=== PATIENT | female | born 1960 | race Caucasian/White ===

== ENCOUNTER → 2023-06-24 13:55 | Outpatient (REF) | payer OTHER, SELFPAY | LOC: RAD 13:55 | PROVIDERS: ATTENDING PHYSICIAN Family Medicine | DX: I82.401 Acute embolism and thrombosis of unspecified deep veins of right lower extremity (principal) | CPT/HCPCS: 93971 ==

== ENCOUNTER → 2023-06-28 09:43 | Outpatient (REF) | payer OTHER, SELFPAY | LOC: WOUND 09:43 | PROVIDERS: ATTENDING PHYSICIAN Surgery; REFERRING PHYSICIAN Family Medicine | DX: I87.311 Chronic venous hypertension (idiopathic) with ulcer of right lower extremity (principal); L97.812 Non-pressure chronic ulcer of other part of right lower leg with fat layer exposed; I89.0 Lymphedema, not elsewhere classified; I73.9 Peripheral vascular disease, unspecified; I87.2 Venous insufficiency (chronic) (peripheral); E66.01 Morbid (severe) obesity due to excess calories | CPT/HCPCS: 11042; 99203 ==

== ENCOUNTER → 2023-07-09 14:55 | Outpatient (REF) | payer OTHER, SELFPAY | LOC: WOUND 14:55 | PROVIDERS: ATTENDING PHYSICIAN Surgery; FAMILY PHYSICIAN Family Medicine | DX: I87.311 Chronic venous hypertension (idiopathic) with ulcer of right lower extremity (principal); L97.812 Non-pressure chronic ulcer of other part of right lower leg with fat layer exposed; I89.0 Lymphedema, not elsewhere classified; I73.9 Peripheral vascular disease, unspecified; I87.2 Venous insufficiency (chronic) (peripheral); E66.01 Morbid (severe) obesity due to excess calories | CPT/HCPCS: 11042 ==

== ENCOUNTER → 2023-07-19 14:56 | Outpatient (REF) | payer OTHER, SELFPAY | LOC: WOUND 14:56 | PROVIDERS: ATTENDING PHYSICIAN Surgery; FAMILY PHYSICIAN Family Medicine | DX: I87.311 Chronic venous hypertension (idiopathic) with ulcer of right lower extremity (principal); L97.812 Non-pressure chronic ulcer of other part of right lower leg with fat layer exposed; I89.0 Lymphedema, not elsewhere classified; I73.9 Peripheral vascular disease, unspecified; I87.2 Venous insufficiency (chronic) (peripheral); E66.01 Morbid (severe) obesity due to excess calories | CPT/HCPCS: 99213 ==

== ENCOUNTER → 2023-08-09 14:48 | Outpatient (REF) | payer OTHER, SELFPAY | LOC: WOUND 14:48 | PROVIDERS: ATTENDING PHYSICIAN Surgery; FAMILY PHYSICIAN Family Medicine | DX: I87.311 Chronic venous hypertension (idiopathic) with ulcer of right lower extremity (principal); L97.812 Non-pressure chronic ulcer of other part of right lower leg with fat layer exposed; I89.0 Lymphedema, not elsewhere classified; I73.9 Peripheral vascular disease, unspecified; I87.2 Venous insufficiency (chronic) (peripheral); E66.01 Morbid (severe) obesity due to excess calories | CPT/HCPCS: 11042 ==

== ENCOUNTER → 2023-08-26 14:35 | Outpatient (REF) | payer OTHER, SELFPAY | LOC: WOUND 14:35 | PROVIDERS: ATTENDING PHYSICIAN Surgery; FAMILY PHYSICIAN Family Medicine | DX: I87.311 Chronic venous hypertension (idiopathic) with ulcer of right lower extremity (principal); L97.812 Non-pressure chronic ulcer of other part of right lower leg with fat layer exposed; I89.0 Lymphedema, not elsewhere classified; I73.9 Peripheral vascular disease, unspecified; I87.2 Venous insufficiency (chronic) (peripheral); E66.01 Morbid (severe) obesity due to excess calories | CPT/HCPCS: 99212 ==

== ENCOUNTER → 2023-09-22 15:57 | Outpatient (REF) | payer OTHER, SELFPAY | LOC: HWWDC 15:57 | PROVIDERS: ATTENDING PHYSICIAN Family Medicine | DX: Z12.31 Encounter for screening mammogram for malignant neoplasm of breast (principal) | CPT/HCPCS: 77063; 77067 ==

== ENCOUNTER → 2023-10-14 08:16 | Outpatient (REF) | payer OTHER, SELFPAY | LOC: RCS 08:16 | PROVIDERS: ATTENDING PHYSICIAN Internal Medicine Cardiovascular Disease; FAMILY PHYSICIAN Family Medicine | DX: R60.9 Edema, unspecified (principal) | CPT/HCPCS: 93306 ==

== ENCOUNTER → 2023-12-20 09:42 | Outpatient (REF) | payer OTHER, SELFPAY | LOC: RAD 09:42 | PROVIDERS: ATTENDING PHYSICIAN Registered Nurse; FAMILY PHYSICIAN Family Medicine | DX: R22.43 Localized swelling, mass and lump, lower limb, bilateral (principal); I83.012 Varicose veins of right lower extremity with ulcer of calf; L97.219 Non-pressure chronic ulcer of right calf with unspecified severity | CPT/HCPCS: 93922; 93970 ==

== ENCOUNTER 2024-05-02 16:16 | Inpatient (IN) | payer OTHER, SELFPAY ==
[2024-04-30 16:08] VITALS: BP 147/79
[2024-04-30 16:47] LABS: % Basophils 0.3 % (0-2); % Immature Granulocytes 1.1 % (0-0.5); % Monocytes 5.9 % (1.7-9.3); % Neutrophils 76.7 % (42.2-75.2); Absolute Eosinophils 0.3 10^3/uL (0-0.7); Absolute Immature Granulocytes 0.1 10^3/uL (0-0.05); Absolute Lymphocytes 1.9 10^3/uL (1.2-3.4); Absolute Monocytes 0.8 10^3/uL (0.1-0.6); Absolute Neutrophils 10.1 10^3/uL (1.4-6.5); Hematocrit 35.6 % (37.0-47.0); Hemoglobin 11.1 g/dL (12.0-16.0); Mean Corp Hgb Conc. 31.2 g/dL (33.0-37.0); Mean Corpuscular Volume 86.6 fL (81.0-99.0); Mean Platelet Volume 8.7 fL (7.4-10.4); Nucleated Red Blood Cells % 0 %; Platelet Count 380 10^3/uL (130-400); Red Blood Cell Count 4.11 10^6/uL (4.20-5.40); Red Cell Dist. Width 14.3 % (11.5-14.5); White Blood Cell Count 13.2 10^3/uL (4.8-10.8)
[2024-04-30 17:02] LABS: ALT (SGPT) 40 U/L (0-35); AST (SGOT) 46 U/L (14-36); Albumin 3.6 g/dl (3.5-5.0); Alkaline Phosphatase 109 U/L (38-126); Blood Urea Nitrogen 37 mg/dl (7-17); Calcium 9.2 mg/dl (8.4-10.2); Carbon Dioxide 30 mmol/L (22-30); Chloride 97 mmol/L (98-107); Glucose 129 mg/dl (70-99); Potassium 3.5 mmol/L (3.5-5.1); Sodium 138 mmol/L (135-145); Total Bilirubin 0.5 mg/dl (0.2-1.3); Total Protein 6.9 g/dl (6.3-8.2)
[2024-04-30] MEDS: ZOSYN 50 IV (19:16)
[2024-04-30] MEDS: NSS 1000 IV (19:17)
[2024-04-30 19:34] VITALS: BP 143/65
--- NOTE | 2024-04-30 20:15 | EDRN ---
Report received, patient to go to ultrasound
--- NOTE | 2024-04-30 21:01 | HPS.HSE ---
Family Physician
-
Family Physician: Constantine Ramirez
Chief Complaint
-
Left lower extremity redness and swelling
History of Present Illness
This is a 63-year-old female with a past medical history significant for chronic bilateral lymphedema and a chronic wound in the right lower extremity who presents to the emergency department for worsening redness and swelling in the left lower
extremity.
Patient reported that she gets blisters in the legs. Recently she had a wound opened up in the left lower extremity and she was treated with Keflex. She finished Keflex on Wednesday. Even while she was on Keflex she reported that she had had
increasing redness and swelling in the left lower extremity. She reports that she has chronic redness in the right lower extremity. She has a chronic wound in the posterior section of this leg for over a year. She has been seeing wound clinic and
has been having debridement with increasing size of the ulcer. Suspect venous stasis ulcer. However on review the wound has been evaluated and is thought to be likely pyoderma gangrenosum. Patient is pending outpatient dermatology for further
evaluation. She has been placed on prednisone 20 mg by her specialist. She has chronic bilateral knee osteoarthritis for which she gets regular injections and last injection was several weeks ago. Patient denies any fevers or chills.
In the ED she was afebrile, hemodynamically stable to blood pressure of 140/65. White count was 13,000. Hemoglobin was 11.1. Electrolytes BUN/creatinine were within normal limits.
Bilateral lower extremity ultrasound was negative for DVT.
Medical History
Past Medical History
Past Medical History: Reports Other
Additional Past Medical History:
Lymphedema
Chronic RLE wound
Past Surgical History: Reports Tonsilectomy
Social History
Tobacco: Non-smoker
Alcohol: Occasional
Drug: None
Personal:
Living: With Family
Employment: Retired
Family History
Family History: Not pertinent
Allergies / Home Medications
Allergies reflects when Allergies were last updated in [facility].
Home Medications with original date entered in [facility]
Allergy/Medication List:
Allergies
Allergy/AdvReac Type Severity Reaction Status Date / Time
latex Allergy Swelling Verified 04/30/24 16:07
Home Medications
Lactobac no.2-Bifidobac no.1-S. thermo 112.5 billion cell capsule (Visbiome) 1 cap PO DAILY 04/30/24
ascorbic acid (vitamin C) 500 mg tablet (Vitamin C) 500 mg PO DAILY 04/30/24
bismuth subsalicylate 262 mg/15 mL oral suspension (Pepto-Bismol) 262 mg PO DAILYPRN PRN diarrhea 04/30/24
furosemide 40 mg tablet (Lasix) 40 mg PO DAILY 04/30/24
gabapentin 300 mg capsule 300 mg PO BID 04/30/24
ibuprofen 200 mg tablet (Advil) 400 mg PO Q8HPRN PRN mild pain 04/30/24
metronidazole 1 % topical gel 1 applic topical DAILY right lower leg 04/30/24
nystatin 100,000 unit/gram topical powder (Klayesta) 1 applic topical DAILY right lower leg 04/30/24
prednisone 20 mg tablet 20 mg PO DAILY 04/30/24
therapeutic multivitamin 1 tab PO DAILY 04/30/24
tramadol 100 mg tablet 100 mg PO TIDPRN PRN moderate pains 04/30/24
vitamin E 268 mg (400 unit) capsule 268 mg PO DAILY 04/30/24
zinc sulfate 50 mg zinc (220 mg) tablet 50 mg PO DAILY 04/30/24
Review of Systems
-
History Source: Patient
Constitutional: Reports No Symptoms
EENT: Reports No Symptoms
Respiratory: Reports No Symptoms
Cardiac: Reports No Symptoms
Abdomen/GI: Reports No Symptoms
: Reports No Symptoms
Musculoskeletal: Reports No Symptoms
Skin: Reports Rash
Endocrine: Reports No Symptoms
Hematologic/Lymphatic: Reports No Symptoms
Psych: Reports No Symptoms
Physical Exam
Vital Signs
Vital Signs
Temp Pulse Resp BP Pulse Ox
98.0 F 82 20 143/65 92
04/30/24 16:08 04/30/24 19:34 04/30/24 19:34 04/30/24 19:34 04/30/24 19:34
Physical Exam
General: Well Developed and Well Nourished
HEENT: NormoCephalic, Anicteric, Moist mucous membranes and Atraumatic
Respiratory: Clear
Cardiac: S1/S2 and Regular Rhythm
GI: Soft, Non Tender, Non Distended and Normal Bowel Sounds
Genito-urinary: Deferred by me
Musculoskeletal: No Cyanosis, Edema, Left Lower Extremity and Edema, Right Lower Extremity
Skin: Warm, Rash and Lesions (5 cm round lesion with granulation tissue in the posterior RLE. Multiple small ulcerations in the Left LE. LE erythema, induration and warmth. No obvious abscess.)
Neuro: AO x 3 and Nonfocal/grossly intact
Hematologic/Lymphatic: No Lymphadenopathy
Psych: Calm
Laboratory Results
-
04/30/24 16:38
04/30/24 16:38
Laboratory Results
Total Bilirubin 0.5 mg/dl (0.2-1.3) 04/30/24 16:38
AST 46 U/L (14-36) H 04/30/24 16:38
ALT 40 U/L (0-35) H 04/30/24 16:38
Alkaline Phosphatase 109 U/L (38-126) 04/30/24 16:38
Data Reviewed
-
Ultrasound: Report Reviewed by me
Lab Data: Labs Reviewed by me
Old Records: Reviewed
Impression/Plan
-
IMPRESSION:
Patient with lymphedema and chronic LE swelling presenting with rapidly developed eythema in the LLE after completing keflex for a LLE wound 2 days ago. Leukocytosis. Afebrile. No DVT. C/W cellulitis.
PLAN:
1. Cellulitis - Mostly LLE, possibly also on the right. Recent abx use (keflex). Has been treated with levaquin in the past and most recent treatment with levaquin was ineffective. She is told she likely has pyoderma gangrenosum on the RLE.
- admit to med/surg obs
- Vancomycin IV for now
- ID consultation
- elevate leg, pain control
- continue lasix 40 daily
- does not want wound care here at
- has outpatient wound care and dermatology referral for pyoderma
DVT PPX - lovenox sq
Code status - Full Code
--- NOTE | 2024-04-30 21:15 | EDRN ---
Patient back from ultrasound and in the restroom dressing her wounds and putting pajamas on, once back in bed will get a weight on patient for antibiotics
[2024-04-30 21:48] VITALS: BMI 43.9
--- NOTE | 2024-04-30 21:56 | EDRN ---
Report received, patient to go to ultrasound
[2024-04-30] MEDS: VANCOCIN 540 MG IV (22:07)
[2024-04-30 22:20] VITALS: BP 154/74
--- NOTE | 2024-04-30 22:20 | EDRN ---
Patient informed me that she had taken her own Tramadol 100mg around 2100, states the provider told her she could, told her the rest of her meds we would provide her.
--- NOTE | 2024-04-30 23:19 | ED.SKININJ ---
HPI-Injury
General
Chief Complaint: Skin Problem
Source: patient
Exam Limitations: none
Time Seen by Provider: 04/30/24 17:56
Nursing documentation reviewed up to this point in time: agreed with
History of Present Illness-Injury
Initial Injury comments:
63 yo female w h/o pyoderma gangrenosum bilateral LE neuropathy presents for increased redness, swelling, oozing blisters, pain both lower legs,
Finished regimen of Keflex 2 days ago for sore on RLE. Started on Gabapentin 2-3 weeks ago for leg pain
Developed bullous blisters on both LEs 2-3 weeks ago
Denies f/c/d/c. Denies n/v.
Past History
Past History
ED Past Medical History: Other (Bilateral lower extremity lymphedema) and Other (Pyoderma gangrenosum)
ED Past Surgical History: Tonsilectomy
Social History
Tobacco: Non-smoker
Alcohol: None
Personal:
Living: with family
Review of Systems
Review of Systems
Allergies reviewed?: Yes
All Other Systems: ROS reviewed and negative except as documented in HPI and ROS
Constitutional: Denies fever or fatigue
Respiratory: Denies trouble breathing
Cardiac: Denies chest pain
ABD/GI: Denies abdominal pain or nausea
: Denies dysuria or difficulty voiding
Musculoskeletal: Reports edema (Bilateral lower extremity lymphedema)
Skin: Reports other (Bilateral lower extremities with erythema, oozing fluid, ulcerations)
Neurological: Reports no symptoms
Phy Exam
Physical Exam
Physical Exam:
GENERAL: No acute distress. A&Ox3.
CONSTITUTIONAL: Afebrile.
EYES: clear, conjunctivae normal
ENMT: moist mucus membranes, Pharynx nl
RESPIRATORY: Regular respirations, nonlabored, lungs clear.
CARDIOVASCULAR: Regular rate and rhythm, no murmurs, no rubs.
GI: Soft, nontender, normal BS
MUSCULOSKELETAL: Both lower extremities are erythematous, edematous, oozing clear to yellowish fluid. Moves with ease. Well perfused.
SKIN: Warm, dry, pink. Tender lesion posterior aspect of RLE. Several small ulcerations LLE
PSYCH: Normal mood and affect. Well kept, interactive and appropriate
NEUROLOGIC: Awake, alert and oriented. No focal neurological deficits
Course
Orders/Labs/Results
Orders:
Orders
04/30/24 Dinner
Regular
04/30/24 16:38
Complete Blood Count/With Diff Urgent
Comprehensive Metabolic Panel Urgent
04/30/24 18:44
US Periph Venous LOWER Ext Rashard Urgent
Comment:
Reason For Exam: swelling, redness, pain, wounds
04/30/24 18:54
Piperacillin/Tazo 3.375 Gram [Zosyn] 3.375 gram in 50 ml IV NOW
04/30/24 18:57
0.9% Sodium Chloride 1000 ml [Nss] 1,000 ml IV BOLUS
04/30/24 20:43
Admit/Transfer Patient As Directed
Co-Sign Provider:
Level of Care: Observation services
Assign to:: Medical/Surgical
Physician / Group: hospitalist
Diagnosis: cellulitis
PRN Pain Medication Management As Directed
May give lesser potent ordered pain med per pt: Yes
preference::
Protocol:: Medication orders for pain may be administered in a
manner that supports deferring to patient preference
when the pt is:
- Requesting an ordered lesser potent pain medication.
Least to most potent pain medications are defined
as: acetaminophen < NSAID < tramadol < opioids
(morphine, oxycodone, hydromorphone).
- Requesting a lesser dose of the same medication IF
ORDERED.
- Requesting a less intrusive route of administration
if both routes are prescribed by the provider (PO <
IV).
04/30/24 20:44
Code Status As Directed
Resuscitation Status: Full Code
04/30/24 20:59
Vancomycin [Vancocin] 2,000 mg 0.9% Sodium Chloride 500 ml [Nss] 500 ml IV NOW
04/30/24 22:00
Flush (0.9% Sodium Chloride) [Flush (Nss)] See Dose Instructions IV PER PROTOCOL
04/30/24 22:50
Acetaminophen [Tylenol] 650 mg PO Q4HPRN PRN
Bisacodyl [Dulcolax] 10 mg RECTAL [id number] PRN
Docusate W/Senna [Senokot-S] 1 tablet PO BIDPRN PRN
Polyethylene Glycol Powder [Miralax] 17 grams PO DAILYPRN PRN
VANCOMYCIN Pharmacy to Dose [VANCOCIN Pharmacy to Dose] 1 each Pharmacy To Prepare [Call Pharmacy To Prepare] 0 ml IV PER PROTOCOL
04/30/24 22:50
Activity As Directed
Activity Level: With Assistance
Vital Signs As Directed
Frequency: Per unit guidelines
DX Deep Vein Thrombosis Video Routine
04/30/24 22:58
Tramadol HCl [Ultram] 100 mg PO TIDPRN PRN
05/01/24 06:00
Basic Metabolic Panel IN AM
Complete Blood Count/No Diff IN AM
05/01/24 08:00
Furosemide [Lasix] 40 mg PO DAILY
Gabapentin [Neurontin] 300 mg PO BID
Prednisone [Deltasone] 20 mg PO DAILY
05/01/24 18:00
Enoxaparin Sodium [Lovenox] 40 mg SC QPM
Abnormal Lab Results
04/30/24
16:38
WBC 13.2 H 10^3/uL
(4.8-10.8)
RBC 4.11 L 10^6/uL
(4.20-5.40)
Hgb 11.1 L g/dL
(12.0-16.0)
Hct 35.6 L %
(37.0-47.0)
MCHC 31.2 L g/dL
(33.0-37.0)
Abs Immat Gran (auto) 0.1 H 10^3/uL
(0-0.05)
Absolute Neuts (auto) 10.1 H 10^3/uL
(1.4-6.5)
Absolute Monos (auto) 0.8 H 10^3/uL
(0.1-0.6)
Immature Gran % 1.1 H %
(0-0.5)
Neutrophils % 76.7 H %
(42.2-75.2)
Lymphocytes % 14.0 L %
(20.5-51.1)
Chloride 97 L mmol/L
(98-107)
BUN 37 H mg/dl
(7-17)
Creatinine 1.2 H mg/dL
(0.6-1.0)
Glucose 129 H mg/dl
(70-99)
AST 46 H U/L
(14-36)
ALT 40 H U/L
(0-35)
04/30/24 16:38
04/30/24 16:38
Vital Signs
Initial and Last Documented VS:
Initial Vital Signs
Temp Pulse Resp BP Pulse Ox
98.0 F 99 20 147/79 99
04/30/24 16:08 04/30/24 16:08 04/30/24 16:08 04/30/24 16:08 04/30/24 16:08
Last Documented Vital Signs
Temp Pulse Resp BP Pulse Ox
98.0 F 62 18 154/74 97
04/30/24 16:08 04/30/24 22:20 04/30/24 22:20 04/30/24 22:20 04/30/24 22:20
MDM/Problems Addressed
Differential Diagnosis Includes:
Cellulitis
MDM/Problems Addressed:
63 yo female w h/o pyoderma gangrenosum bilateral LE neuropathy, chronic bilateral lymphedema, chronic wound right lower extremity, presents for increased redness, swelling, oozing blisters, pain both lower legs.
Finished regimen of Keflex 2 days ago for sore on RLE. Started on Gabapentin 2-3 weeks ago for leg pain
Developed bullous blisters on both LEs 2-3 weeks ago
Denies f/c/d/c. Denies n/v.
Afebrile, NAD
CBC: WBC 13.0
CMP: BUN/creat 37/1.2 otherwise no clinically significant abnormality
Bilateral lower extremity ultrasound negative for DVT
Plan: Admit, cellulitis LEs, failed out pt therapy. Hospitalist notified of admission
*Critical Care Note
Total Time (30-74mins, 75-104mins- exclusive of procedures): Not Applicable
ED Attending Note
-
Portions of this chart may have been created with voice recognition software.� Occasional wrong word or��sound alike� substitutions may have occurred due to the inherent limitations of voice recognition software.
Discharge Plan
Departure
Patient Disposition: Admit
Date of Disposition: 04/30/24
Time of Disposition: 20:08
Admit to: Med/Surg
Presentation/result/management discussed w/ accepting MD/DO: Hospitalist
Condition: Fair
Discharge Problem:
Cellulitis of both lower extremities
Interventions
Interventions:
*Risk Screen - Suicide Last Done: 04/30/24 16:08
*General Assessment Last Done: 04/30/24 19:05
*Neglect/Abuse Screening Last Done: 04/30/24 16:08
ED- Fall Risk Assessment Last Done: 04/30/24 19:25
*ED COVID-19 Vaccine History Last Done: 04/30/24 19:25
ED-Skin Assessment Last Done: 04/30/24 19:25
[2024-05-01] VITALS: BP 139/63
[2024-05-01] MEDS: ULTRAM 100 MG PO ×3 (05:50→21:08)
[2024-05-01 06:27] LABS: Hematocrit 34.2 % (37.0-47.0); Hemoglobin 10.8 g/dL (12.0-16.0); Mean Corp Hgb Conc. 31.6 g/dL (33.0-37.0); Mean Corpuscular Hgb 27.6 pg (27.0-31.0); Mean Corpuscular Volume 87.5 fL (81.0-99.0); Mean Platelet Volume 9.1 fL (7.4-10.4); Platelet Count 420 10^3/uL (130-400); Red Blood Cell Count 3.91 10^6/uL (4.20-5.40); Red Cell Dist. Width 14.6 % (11.5-14.5); White Blood Cell Count 11.7 10^3/uL (4.8-10.8)
[2024-05-01 06:52] LABS: Blood Urea Nitrogen 24 mg/dl (7-17); Calcium 8.7 mg/dl (8.4-10.2); Carbon Dioxide 28 mmol/L (22-30); Chloride 103 mmol/L (98-107); Estimated Creatinine Clearance 98 ml/min; Glucose 103 mg/dl (70-99); Potassium 4.2 mmol/L (3.5-5.1); Sodium 139 mmol/L (135-145); eGFR > 60.00
[2024-05-01 08:28] VITALS: BP 180/93
[2024-05-01] MEDS: NEURONTIN 300 MG PO ×2 (08:29→20:17)
[2024-05-01] MEDS: LASIX 40 MG PO (08:29)
[2024-05-01] MEDS: DELTASONE 20 MG PO (08:29)
--- NOTE | 2024-05-01 09:45 | W.PN.HOSP.TC ---
Today's Communication/Plan
-
IV Lasix now
recheck labs in AM
potential dc tomorrow
Assessment / Plan
Assessment / Plan
Cellulitis on LLE
ID consult
empiric abx
Dr Nogueira does not believe this is cellulitis, believes lymphedema and stopped abx
she recommends increase Lasix, follow with derm
Prior dx of Pyoderma Gangrenosum
pt had appt to see Dermatology at [facility] 05/02 for definitive dx/Bx. She cancelled appt, but was told they will get her in soon. On 2nd visit reviewed with pt and , requested set up appt with derm JERONIMO
chronic edema
P:ID consult
will consult wound care. Pt has seen outpt Wound Care at and does not want them to be involved in her care
continue Vanco for now
Full Code
Anticipated Discharge: 24 - 48 hours
Subjective/Interval History
-
Date of Service: May 01, 2024
Awake, alert
Objective Data
-
Labs:
Laboratory Results
05/01/24
05:29
WBC 11.7 H
Hgb 10.8 L
Hct 34.2 L
Plt Count 420 H
Sodium 139
Potassium 4.2
Chloride 103
Carbon Dioxide 28
BUN 24 H
Creatinine 0.7
Glucose 103 H
Calcium 8.7
Vital Signs:
Vital Signs
Temp Pulse Resp BP Pulse Ox
97.8 F 94 18 180/93 98
05/01/24 08:28 05/01/24 08:28 05/01/24 08:28 05/01/24 08:28 05/01/24 08:28
I&O
04/30/24 05/01/24 05/02/24
06:59 06:59 06:59
Intake Total 1020 / 1020
Balance 1020 / 1020
Review of Systems
-
History Source: Patient
Constitutional: Denies Fever
EENT: Reports No Symptoms Reported
Respiratory: Reports No Symptoms
Cardiac: Reports No Symptoms
Abdomen/GI: Reports No Symptoms
Musculoskeletal: Reports Joint Pain (bilateral knee pain)
Physical Exam
-
General: Well Developed, Well Nourished and No Apparent Distress
HEENT: Normocephalic, Atraumatic and Moist Mucous Membranes
Respiratory: Clear to Auscultation; Negative Wheezes, Rales or Rhonchi
Cardiac: Regular Rhythm and S1/S2
GI: Soft, Nontender and Nondistended
Musculoskeletal: Edema, Right Lower Extrem, Edema, Left Lower Extrem and Other (bilateral knee arthritic changes)
Skin: Warm and Rash (leftlower extremity with cellulitic changes, Rt leg with hx of pyoderma and chronic changes)
Neuro: Awake and Alert
--- NOTE | 2024-05-01 09:47 | PHA.VAN.IN ---
Assessment
- Assessment
Renal Function: Unknown baseline
Maximum Temperature: 98.2
Minimum Temperature: 97.8
Concomitant Antimicrobials: one dose of piperacillin-tazobactam in ED
AUC Dosing Plan
- Dosing Variables
Dosing Weight (kg): 108.8 kg
Dosing CrCl (ml/min): 64
Vd coefficient (L/kg): 0.5
- Empiric Dosing
Initial / Loading Dose: 2000 mg (18.5 mg/kg) 04/30 at 22:07
Maintenance Regimen: vanc 1250mg iv q 12 h
Estimated AUC (mcg*h/mL): 569
Estimated Peak (mcg*h/mL): 35.7
Estimated Trough (mcg/ml): 14.5
Estimated Half Life (H): 8 h
- Monitoring
No levels ordered at this time: consider in the upcoming days
MRSA Screen: Ordered per protocol
Pharmacokinetics Vancomycin I
- -
Patient Age: 63
Patient Sex: Female
Vancomycin Day #: 1
Indication: Skin And Soft Tissue
Requesting Provider: Dr Velasquez
Pertinent Antimicrobial Allergies:
no pertinent antibiotic allergies
Height / Weight:
Height 5 ft 2 in
Actual Weight 108.8 kg
Adjusted BW in k.6
Pertinent Past Medical History: pyoderma gangrenosum on outpt wound care and prednisone;BMI ~44
- Vital Signs / Lab Results
Temp Pulse Resp BP Pulse Ox
97.8 F 94 18 180/93 98
05/01/24 08:28 05/01/24 08:28 05/01/24 08:28 05/01/24 08:28 05/01/24 08:28
Lab Results - Hematology
04/30/24 05/01/24
16:38 05:29
WBC 13.2 H 11.7 H
Lab Results - Chemistry
04/30/24 05/01/24
16:38 05:29
BUN 37 H 24 H
Creatinine 1.2 H 0.7
Estimated Creat Clear 98
Albumin 3.6
--- NOTE | 2024-05-01 09:57 | CM ---
CM reviewed medical records. CM met with patient in room. Patient confirmed demographics. Patient lives independently with . Patient denies history of SNF. Patient is known to [facility] and also [facility] (Home Wound LAB SPECIALIST).
Patient's wound LAB SPECIALIST is Consuelo Daniel [phone]. Patient uses a wheelchair at times when she is out with family. Patient uses a cane and walker to negotiate stairs. She stated that she mostly stays on the first floor. Patient is active with
her PCP. Patient uses [facility] pharmacy.
OBS letter given.
PLAN: return home with [facility] and wound LAB SPECIALIST.
[2024-05-01 12:45] VITALS: BP 150/77
--- NOTE | 2024-05-01 13:14 | CON.ID ---
Consultation
-
Date/Time Consultation Requested: 05/01/24 10:09
Date/Time Consultation Performed: 05/01/24 13:14
Requesting Provider: Dr Berkowitz
Performing Provider: Dr Nogueira
Reason for Consultation: Left lower extremity redness and swelling
Chief Complaint / Past History
Chief Complaint
increasing redness and swelling of the LLE
History of Present Illness
Ms Ospina is a 63 year old female with history of class III obesity, uncontrolled lymphedema who presented here yesterday 04/30 for a recent blister on the left lower extremity, a chronic wound and progressive erythema and swelling. She has
previously been diagnosed with pyoderma gangrenosum at a wound care center now on prednisone 20 mg PO day, a biopsy was done outpatient with dermatology and reportedly is still pending. Also of note with recenter steroid injections into the knees.
Since arrival here she has been afebrile, bp stable to hypertensive, wbc initially 13 now11.7, hgb 10.8, plt 420, L shift was noted, cr initially 1.2 today 0.7, 04/30 venous us: no dvt bilaterally, a mrsa screen of the nose has been done and is
pending, she has received doses of vancomycin and zosyn and is currently on vancomycin only, she is alos on furosemide 40 mg po qday (her home dose), and prednisone 20 mg po qday, ID is consulted for assistance with management.
Past History
Additional Past Medical History:
Lymphedema
Chronic RLE wound
Additional Past Surgical History:
tonsillectomy
Allergy History:
latex Allergy (Verified 04/30/24 16:07)
Swelling
Medications Reviewed: Yes
Social History
Tobacco: Non-Smoker
Alcohol: Occasional
Drug: None
Family History
Family History: Not Pertinent
Review of Systems
Review of Systems
General: Negative Fever or Chills
All systems: All other systems were reviewed and were negative
Vital Signs
Temp Pulse Resp BP Pulse Ox
98.0 F 88 18 150/77 96
05/01/24 12:45 05/01/24 12:45 05/01/24 08:28 05/01/24 12:45 05/01/24 12:45
Physical Exam
Physical Exam
Constitutional: No Acute Distress
Cardiovascular: Regular Rate and S1/S2; Negative Murmur or Rub
Pulmonary: Clear and Symmetric; Negative Wheezes, Rales or Rhonchi
Gastrointestinal: Soft, Non Tender, Non Distended and Normal Bowel Sounds
Skin: Warm and Dry; Negative Rash or Jaundice
Wound: Other (extensive bilateral pitting edema with chronic lichenification, wound on the posterior R calf with some eschar, slough and draining serous fluid; erythema of the bilateral feet but not legs; feet in dependent position )
Lab / Diagnostic Study Results
05/01/24 05:29
05/01/24 05:29
Abs Immat Gran (auto) 0.1 10^3/uL (0-0.05) H 04/30/24 16:38
Absolute Neuts (auto) 10.1 10^3/uL (1.4-6.5) H 04/30/24 16:38
Absolute Lymphs (auto) 1.9 10^3/uL (1.2-3.4) 04/30/24 16:38
Absolute Monos (auto) 0.8 10^3/uL (0.1-0.6) H 04/30/24 16:38
Absolute Basos (auto) 0.0 10^3/uL (0-0.2) 04/30/24 16:38
Immature Gran % 1.1 % (0-0.5) H 04/30/24 16:38
Neutrophils % 76.7 % (42.2-75.2) H 04/30/24 16:38
Lymphocytes % 14.0 % (20.5-51.1) L 04/30/24 16:38
Monocytes % 5.9 % (1.7-9.3) 04/30/24 16:38
Eosinophils % 2.0 % (0-6) 04/30/24 16:38
Basophils % 0.3 % (0-2) 04/30/24 16:38
Microbiology Results
Micro:
05/01/24 11:49 MRSA Screen - Pending
Nose
Assessment / Plan
Venous Stasis Dermatitis
Chronic, uncontrolled lymphedema
Chronic Bilateral wounds
Possible Pyoderma Gangrenosum
Neuropathy
Class III obesity
- recently started on empiric steroids, now with notably increased swelling and venous drainage with subsequent pain which lead her to stop compression with cyclic increase in pain and swelling; patient reports copious serous drainage from every
small wound in the legs consistent with uncontrolled lymphedema
- would consider some additional lasix to faciltitate fluid removal
- feel that decompensated venous stasis/lymphedema is the main cause of her symptoms
- suggest optimizing pain control to allow for compression which should improve the edema, erythema etc; do not expect erythema to improve until patient is able to comply with compression and elevation
- superficial wound cultures will always reveal a variety of mostly transient pathogens, given overall clinical picture, favor venous stasis dermatitis
- no need for further antibiotics
- follow up with dermatology for biopsy for possible PG, follow up with her wound care center
- suggest follow up with obesity talent management specialist ([facility], Endocrinology etc)
Care Review
Plan reviewed with: Physician (Dr Berkowitz - control of edema and pain; antibiotics)
--- NOTE | 2024-05-01 14:39 | PTCARENOTE ---
Pt seen by ID who would like B/L legs ankit wrapped to help w/ lymphedema. Pt able to tolerate ankit wrap on R foot and L foot/leg.
[2024-05-01 15:05] VITALS: BP 166/87
--- NOTE | 2024-05-01 18:28 | HPS.HSE ---
Family Physician
-
Family Physician: Constantine Ramirez
Chief Complaint
-
Left lower extremity redness and swelling
History of Present Illness
This is a 63-year-old female with a past medical history significant for chronic bilateral lymphedema and a chronic wound in the right lower extremity who presents to the emergency department for worsening redness and swelling in the left lower
extremity.
Patient reported that she gets blisters in the legs. Recently she had a wound opened up in the left lower extremity and she was treated with Keflex. She finished Keflex on Wednesday. Even while she was on Keflex she reported that she had had
increasing redness and swelling in the left lower extremity. She reports that she has chronic redness in the right lower extremity. She has a chronic wound in the posterior section of this leg for over a year. She has been seeing wound clinic and
has been having debridement with increasing size of the ulcer. Suspect venous stasis ulcer. However on review the wound has been evaluated and is thought to be likely pyoderma gangrenosum. Patient is pending outpatient dermatology for further
evaluation. She has been placed on prednisone 20 mg by her specialist. She has chronic bilateral knee osteoarthritis for which she gets regular injections and last injection was several weeks ago. Patient denies any fevers or chills.
In the ED she was afebrile, hemodynamically stable to blood pressure of 140/65. White count was 13,000. Hemoglobin was 11.1. Electrolytes BUN/creatinine were within normal limits.
Bilateral lower extremity ultrasound was negative for DVT.
Medical History
Past Medical History
Past Medical History: Reports Other
Additional Past Medical History:
Lymphedema
Chronic RLE wound
Past Surgical History: Reports Tonsilectomy
Social History
Tobacco: Non-smoker
Alcohol: Occasional
Drug: None
Personal:
Living: With Family
Employment: Retired
Family History
Family History: Not pertinent
Allergies / Home Medications
Allergies reflects when Allergies were last updated in [employer].
Home Medications with original date entered in [employer]
Allergy/Medication List:
Allergies
Allergy/AdvReac Type Severity Reaction Status Date / Time
latex Allergy Swelling Verified 04/30/24 16:07
Home Medications
Lactobac no.2-Bifidobac no.1-S. thermo 112.5 billion cell capsule (Visbiome) 1 cap PO DAILY 04/30/24
ascorbic acid (vitamin C) 500 mg tablet (Vitamin C) 500 mg PO DAILY 04/30/24
bismuth subsalicylate 262 mg/15 mL oral suspension (Pepto-Bismol) 262 mg PO DAILYPRN PRN diarrhea 04/30/24
furosemide 40 mg tablet (Lasix) 40 mg PO DAILY 04/30/24
gabapentin 300 mg capsule 300 mg PO BID 04/30/24
ibuprofen 200 mg tablet (Advil) 400 mg PO Q8HPRN PRN mild pain 04/30/24
metronidazole 1 % topical gel 1 applic topical DAILY right lower leg 04/30/24
nystatin 100,000 unit/gram topical powder (Klayesta) 1 applic topical DAILY right lower leg 04/30/24
prednisone 20 mg tablet 20 mg PO DAILY 04/30/24
therapeutic multivitamin 1 tab PO DAILY 04/30/24
tramadol 100 mg tablet 100 mg PO TIDPRN PRN moderate pains 04/30/24
vitamin E 268 mg (400 unit) capsule 268 mg PO DAILY 04/30/24
zinc sulfate 50 mg zinc (220 mg) tablet 50 mg PO DAILY 04/30/24
Review of Systems
-
History Source: Patient
Constitutional: Reports No Symptoms
EENT: Reports No Symptoms
Respiratory: Reports No Symptoms
Cardiac: Reports No Symptoms
Abdomen/GI: Reports No Symptoms
: Reports No Symptoms
Musculoskeletal: Reports Edema (bilateral lower extremity edema)
Skin: Reports Rash
Neurological: Reports No Symptoms
Endocrine: Reports No Symptoms
Hematologic/Lymphatic: Reports No Symptoms
Psych: Reports No Symptoms
Physical Exam
Vital Signs
Vital Signs
Temp Pulse Resp BP Pulse Ox
98.0 F 90 16 166/87 94
05/01/24 15:05 05/01/24 15:05 05/01/24 15:05 05/01/24 15:05 05/01/24 15:05
Physical Exam
General: Well Developed, Well Nourished, No Apparent Distress and Comfortable
HEENT: NormoCephalic, Anicteric, Moist mucous membranes and Atraumatic
Respiratory: Clear
Cardiac: S1/S2 and Regular Rhythm
GI: Soft, Non Tender, Non Distended and Normal Bowel Sounds
Rectal: Deferred by Provider
Genito-urinary: Deferred by me
Musculoskeletal: No Clubbing, No Cyanosis, Edema, Left Lower Extremity and Edema, Right Lower Extremity
Skin: Lesions (5 cm round lesion with granulation tissue in the posterior RLE. Multiple small ulcerations in the Left LE. LE erythema, induration and warmth. No obvious abscess.)
Neuro: AO x 3 and Nonfocal/grossly intact
Hematologic/Lymphatic: No Lymphadenopathy
Psych: Calm
Laboratory Results
-
05/01/24 05:29
05/01/24 05:29
Laboratory Results
Total Bilirubin 0.5 mg/dl (0.2-1.3) 04/30/24 16:38
AST 46 U/L (14-36) H 04/30/24 16:38
ALT 40 U/L (0-35) H 04/30/24 16:38
Alkaline Phosphatase 109 U/L (38-126) 04/30/24 16:38
Data Reviewed
-
Ultrasound: Report Reviewed by me
Lab Data: Labs Reviewed by me
Old Records: Reviewed
Impression/Plan
-
IMPRESSION:
Patient with lymphedema and chronic LE swelling presenting with rapidly developed eythema in the LLE after completing keflex for a LLE wound 2 days ago. Leukocytosis. Afebrile. No DVT. C/W cellulitis.
PLAN:
1. Cellulitis - Mostly LLE, possibly also on the right. Recent abx use (keflex). Has been treated with levaquin in the past and most recent treatment with levaquin was ineffective. She is told she likely has pyoderma gangrenosum on the RLE.
- admit to med/surg obs
- Vancomycin IV for now
- ID consultation
- elevate leg, pain control
- continue lasix 40 daily
- does not want wound care here at
- has outpatient wound care and dermatology referral for pyoderma
DVT PPX - lovenox sq
Code status - Full Code
[2024-05-01] MEDS: LASIX IV (20:16)
[2024-05-01] MEDS: LASIX 40 MG IV (21:02)
[2024-05-01 21:14] VITALS: BP 160/94
[2024-05-01 23:48] VITALS: BP 176/93
[2024-05-02] MEDS: ULTRAM 100 MG PO ×3 (04:06→22:23)
[2024-05-02 04:10] VITALS: BP 167/91
[2024-05-02 07:38] VITALS: BP 168/88
[2024-05-02] MEDS: LASIX 40 MG PO ×2 (09:27→17:41)
[2024-05-02] MEDS: DELTASONE 20 MG PO (09:27)
[2024-05-02] MEDS: NEURONTIN 300 MG PO ×2 (09:27→20:14)
--- NOTE | 2024-05-02 10:15 | W.PN.ID1 ---
Addendum entered and electronically signed by Imelda Nogueira MD 05/02/24 15:56:
nose colonized with mrsa does not change assessement of venous stasis dermatitis
Original Note:
Date of Service
Date of Service: May 02, 2024
Today's Communication
- suggest optimizing pain control to allow for compression and elevation which should improve the edema, erythema etc; do not expect the mild erythema of the feet to improve until patient is able to comply with compression and elevation
- superficial wound cultures will always reveal a variety of mostly transient pathogens, given overall clinical picture, favor venous stasis dermatitis
- no need for further antibiotics
- follow up with dermatology for biopsy for possible PG, follow up with her wound care center
- suggest follow up with obesity property management intern ([facility], Endocrinology etc)
Assessment / Plan
Bilateral Venous Stasis Dermatitis
Chronic, uncontrolled lymphedema
Chronic Bilateral wounds
Possible Pyoderma Gangrenosum
Neuropathy
Class III obesity
- recently started on empiric steroids, now with notably increased swelling and venous drainage with subsequent pain which lead her to stop compression with subsequent further increase in pain and swelling; patient reports copious serous drainage
from every small wound in the legs consistent with uncontrolled lymphedema
- improved erythema of the compressed right leg as expected, she has been able to tolerate some elevation (not currently) and no compression of the RLE
- feel that decompensated venous stasis/lymphedema is the main cause of her symptoms
- suggest optimizing pain control to allow for compression which should improve the edema, erythema etc; do not expect the mild erythema of the feet to improve until patient is able to comply with compression and elevation
- superficial wound cultures will always reveal a variety of mostly transient pathogens, given overall clinical picture, favor venous stasis dermatitis
- no need for further antibiotics
- follow up with dermatology for biopsy for possible PG, follow up with her wound care center
- suggest follow up with obesity property management intern ([facility], Endocrinology etc)
Chief Complaint
-: Other (venous stasis dermatitis )
Subjective / Review of Systems
afebrile
running hypertensive
refused labs this am
rocking back and forth in pain - notified hospitalist via tiger text; says she had a very bad night
reports minimal UOP with lasix last night
Vital Signs / Physical Exam
Vital Signs
Vital Signs
Temp Pulse Resp BP Pulse Ox
98.5 F 79 17 168/88 95
05/02/24 07:38 05/02/24 07:38 05/02/24 07:38 05/02/24 07:38 05/02/24 07:38
Physical Exam
Constitutional: No Acute Distress
Cardiovascular: Regular Rate and S1/S2; Negative Murmur or Rub
Pulmonary: Clear and Symmetric; Negative Wheezes or Rales
Gastrointestinal: Soft, Non Tender, Non Distended and Normal Bowel Sounds
Musculoskeletal: Other (L leg in compression and improved erythema; R foot severe edema and mild erythema that blanches)
Skin: Warm and Dry; Negative Rash or Jaundice
Neurological: Awake
Psychological: Other (rocking back and forth)
Objective Data
Lab Data
Estimated Creat Clear 98 ml/min 05/01/24 05:29
Total Bilirubin 0.5 mg/dl (0.2-1.3) 04/30/24 16:38
AST 46 U/L (14-36) H 04/30/24 16:38
ALT 40 U/L (0-35) H 04/30/24 16:38
Alkaline Phosphatase 109 U/L (38-126) 04/30/24 16:38
Most recent labs reviewed.
Micro Results:
05/01/24 11:49 MRSA Screen - Pending
Nose
Care Review
Plan reviewed with: Nurse (complied with L leg treatments overnight, complied with right foot treatment, but unable to comply with compression of leg) and Physician
[2024-05-02] MEDS: PERCOCET 5/325 1 TABLET PO (10:40)
[2024-05-02 15:28] VITALS: BP 125/100
[2024-05-02 15:50] LABS: Erythrocyte Sed Rate 92 mm/hour (0-20)
[2024-05-02 15:52] LABS: % Basophils 0.6 % (0-2); % Eosinophils 0.3 % (0-6); % Immature Granulocytes 1.3 % (0-0.5); % Lymphocytes 8.4 % (20.5-51.1); % Monocytes 4.1 % (1.7-9.3); % Neutrophils 85.3 % (42.2-75.2); Absolute Basophils 0.1 10^3/uL (0-0.2); Absolute Immature Granulocytes 0.2 10^3/uL (0-0.05); Absolute Monocytes 0.5 10^3/uL (0.1-0.6); Absolute Neutrophils 10.2 10^3/uL (1.4-6.5); Hematocrit 34.8 % (37.0-47.0); Hemoglobin 11.2 g/dL (12.0-16.0); Mean Corp Hgb Conc. 32.2 g/dL (33.0-37.0); Mean Corpuscular Hgb 27.1 pg (27.0-31.0); Mean Corpuscular Volume 84.1 fL (81.0-99.0); Mean Platelet Volume 8.5 fL (7.4-10.4); Nucleated Red Blood Cells % 0 %; Platelet Count 500 10^3/uL (130-400); Red Blood Cell Count 4.14 10^6/uL (4.20-5.40); Red Cell Dist. Width 14.6 % (11.5-14.5); White Blood Cell Count 11.9 10^3/uL (4.8-10.8)
--- NOTE | 2024-05-02 16:09 | W.PN.HOSP.TC ---
Today's Communication/Plan
-
importance of leg elevation reviewed with pt and nurse
increase Lasix
follow I/O
Wound Care consult
Assessment / Plan
Assessment / Plan
Cellulitis on LLE
ID consult
empiric abx
Dr Nogueira does not believe this is cellulitis, believes lymphedema and stopped abx
she recommends increase Lasix, follow with derm, pt has appt on 05/08. Have written pt for Percocet prn. Not a good situation
Prior dx of Pyoderma Gangrenosum
pt had appt to see Dermatology at [facility] 05/02 for definitive dx/Bx. She cancelled appt, but was told they will get her in soon. On 2nd visit reviewed with pt and , requested set up appt with derm JERONIMO
chronic edema
P:ID consult appreciated
will consult wound care. Pt has seen outpt Wound Care at and does not want them to be involved in her care
Increase daily Lasix
Full Code
Anticipated Discharge: 24 - 48 hours
Subjective/Interval History
-
Date of Service: May 02, 2024
Still with feet pain
Objective Data
-
Labs:
Laboratory Results
05/02/24 05/02/24
06:00 15:10
WBC 11.9 H
Hgb 11.2 L
Hct 34.8 L
Plt Count 500 H
Sodium Cancelled
Potassium Cancelled
Chloride Cancelled
Carbon Dioxide Cancelled
BUN Cancelled
Creatinine Cancelled
Glucose Cancelled
Calcium Cancelled
Vital Signs:
Vital Signs
Temp Pulse Resp BP Pulse Ox
98.2 F 97 17 125/100 95
05/02/24 15:28 05/02/24 15:28 05/02/24 15:28 05/02/24 15:28 05/02/24 15:28
I&O
05/01/24 05/02/24 05/03/24
06:59 06:59 06:59
Intake Total 1020 / 1020 240 / 240
Balance 1020 / 1020 240 / 240
Review of Systems
-
History Source: Patient and Physician (reviewed with Dr. Nogueira)
Constitutional: Denies Fever
EENT: Reports No Symptoms Reported
Respiratory: Reports No Symptoms
Cardiac: Reports No Symptoms
Abdomen/GI: Reports No Symptoms
Musculoskeletal: Reports Joint Pain (bilateral knee pain)
Physical Exam
-
General: Well Developed, Well Nourished and No Apparent Distress
HEENT: Normocephalic, Atraumatic and Moist Mucous Membranes
Respiratory: Clear to Auscultation; Negative Wheezes, Rales or Rhonchi
Cardiac: Regular Rhythm and S1/S2
GI: Soft, Nontender and Nondistended
Musculoskeletal: Edema, Right Lower Extrem, Edema, Left Lower Extrem and Other (bilateral knee arthritic changes)
Skin: Warm and Rash (left lower extremity with hyperremic changes, Rt leg with hx of pyoderma and chronic changes)
Neuro: Awake and Alert
--- NOTE | 2024-05-02 20:26 | PTCARENOTE ---
Received pt awake, alert, oriented, sitting up in chair independently without c/o pain. LE edema B/L with erythema and reported wounds. Pt's lower extremities currently wrapped. Pt completes own wound care. Refer to assessment documentation for full
shift assessment documentation. Pt currently resting comfortably in chair. Plan of care reviewed with pt.
[2024-05-02 23:05] VITALS: BP 150/95
[2024-05-03] MEDS: PERCOCET 5/325 1 TABLET PO ×2 (03:19→11:48)
[2024-05-03 04:35] VITALS: BMI 43.7
[2024-05-03 05:14] LABS: % Basophils 0.4 % (0-2); % Eosinophils 0.6 % (0-6); % Immature Granulocytes 1.9 % (0-0.5); % Lymphocytes 19.5 % (20.5-51.1); % Monocytes 6.9 % (1.7-9.3); % Neutrophils 70.7 % (42.2-75.2); Absolute Basophils 0.1 10^3/uL (0-0.2); Absolute Eosinophils 0.1 10^3/uL (0-0.7); Absolute Immature Granulocytes 0.3 10^3/uL (0-0.05); Absolute Lymphocytes 3.2 10^3/uL (1.2-3.4); Absolute Monocytes 1.1 10^3/uL (0.1-0.6); Absolute Neutrophils 11.5 10^3/uL (1.4-6.5); Hematocrit 37.9 % (37.0-47.0); Hemoglobin 11.6 g/dL (12.0-16.0); Mean Corp Hgb Conc. 30.6 g/dL (33.0-37.0); Mean Corpuscular Hgb 26.8 pg (27.0-31.0); Mean Corpuscular Volume 87.5 fL (81.0-99.0); Mean Platelet Volume 8.8 fL (7.4-10.4); Nucleated Red Blood Cells % 0 %; Platelet Count 586 10^3/uL (130-400); Red Blood Cell Count 4.33 10^6/uL (4.20-5.40); Red Cell Dist. Width 14.6 % (11.5-14.5); White Blood Cell Count 16.3 10^3/uL (4.8-10.8)
[2024-05-03 06:03] LABS: Blood Urea Nitrogen 27 mg/dl (7-17); Carbon Dioxide 29 mmol/L (22-30); Chloride 97 mmol/L (98-107); Estimated Creatinine Clearance 68 ml/min; Glucose 175 mg/dl (70-99); Sodium 139 mmol/L (135-145); eGFR > 60.00
[2024-05-03 07:42] VITALS: BP 135/94
[2024-05-03] MEDS: DELTASONE 20 MG PO (08:03)
[2024-05-03] MEDS: ULTRAM 100 MG PO (08:04)
[2024-05-03] MEDS: LASIX 40 MG PO (08:04)
[2024-05-03] MEDS: VIBRAMYCIN 100 MG PO (08:04)
[2024-05-03] MEDS: NEURONTIN 300 MG PO (08:04)
--- NOTE | 2024-05-03 09:58 | W.PN.ID1 ---
Date of Service
Date of Service: May 03, 2024
Today's Communication
- main issue is acute on chronic lymphedema - currently decompensated
- compression and elevation mainstay of care - will need pain controlled to be able to comply - if not able to comply do not expect improvement
- diuresis
- consider low Na diet
- encouraged outpatient lymphedema care
- confirmation of PG important, steroids likely contributing to fluid retention - patient has follow up outpatient with dermatology for biopsy arranged
- suspect leukocytosis related to steroids, no objection to a course of doxycycline x 7 days
Assessment / Plan
Bilateral Venous Stasis Dermatitis
Chronic, uncontrolled lymphedema
Chronic Bilateral wounds
Possible Pyoderma Gangrenosum
Neuropathy
Class III obesity
- main issue is acute on chronic lymphedema - currently decompensated
- compression and elevation mainstay of care - will need pain controlled to be able to comply - if not able to comply do not expect improvement
- diuresis
- consider low Na diet
- encouraged outpatient lymphedema care
- confirmation of PG important, steroids likely contributing to fluid retention - patient has follow up outpatient with dermatology for biopsy arranged
- suspect leukocytosis related to steroids, no objection to a course of doxycycline x 7 days
- follow up with dermatology for biopsy for possible PG, follow up with her wound care center
- suggest follow up with obesity records management analyst ([facility], Endocrinology etc)
Chief Complaint
-: Other (venous stasis dermatitis )
Subjective / Review of Systems
afebrile
bp stable
note progression of leukocytosis
patient reports markedly improved erythema since arrival - 'my feet were beet red when I got here'
pain better controlled but still with burning
Vital Signs / Physical Exam
Vital Signs
Vital Signs
Temp Pulse Resp BP Pulse Ox
99.0 F 107 17 135/94 95
05/03/24 07:42 05/03/24 07:42 05/03/24 07:42 05/03/24 07:42 05/03/24 09:46
Physical Exam
Constitutional: No Acute Distress
Cardiovascular: Regular Rate
Pulmonary: Symmetric and Non Labored
Gastrointestinal: Non Distended
Skin: Dry and Rash (bilateral feet pink, legs without erythema, wounds with copious serous drainage); Negative Jaundice
Wound: Other (copious serous drainage on the dressing from both legs; left leg (compressed) still with 2+ pitting edema; right leg (not able to tolerate compression due to wounds) 3+ pitting edema; bilateral feet pink)
Objective Data
Lab Data
Lab Results
05/03/24 04:26
05/03/24 04:26
ESR 92 mm/hour (0-20) H 05/02/24 15:10
Estimated Creat Clear 68 ml/min 05/03/24 04:26
Total Bilirubin 0.5 mg/dl (0.2-1.3) 04/30/24 16:38
AST 46 U/L (14-36) H 04/30/24 16:38
ALT 40 U/L (0-35) H 04/30/24 16:38
Alkaline Phosphatase 109 U/L (38-126) 04/30/24 16:38
C-Reactive Protein Cancelled 05/02/24 06:00
Most recent labs reviewed.
Micro Results:
05/01/24 11:49 MRSA Screen - Final
Nose Staph aureus MRSA
Care Review
Plan reviewed with: Physician (Dr silverio)
--- NOTE | 2024-05-03 10:04 | CM ---
Addendum entered by Ava Cerrato 05/03/24 14:55:
referral sent to [facility] for [facility]. awaiting confirmation that it was accepted.
Original Note:
Patient seen at bedside. Patient confirmed that she has had [facility] home care and a wound nurse. Patient will need updated referral for VN and stated that she will be able to go home with her . CM will continue to follow for discharge
planning needs.
Plan; home with VN; referral to be sent to [facility] for [facility]LA
--- NOTE | 2024-05-03 14:04 | W.PN.HOSP.TC ---
Today's Communication/Plan
-
dc today
Assessment / Plan
Assessment / Plan
Cellulitis on LLE
ID consult
empiric abx stopped, will place on Doxycycline
Dr Nogueira does not believe this is cellulitis, believes lymphedema and stopped abx
she recommends increase Lasix, follow with derm, pt has appt on 05/08. Have written pt for Percocet prn. Not a good situation
Prior dx of Pyoderma Gangrenosum
pt had appt to see Dermatology at [facility] 05/02 for definitive dx/Bx. She cancelled appt, but was told they will get her in soon. On 2nd visit reviewed with pt and , requested set up appt with derm JERONIMO, told has appt for 05/08
chronic edema
P:ID consult appreciated
will consult wound care. Pt has seen outpt Wound Care at and does not want them to be involved in her care
Increase daily Lasix to bid
Will dc now
see dictated note
reviewed with pt and at bedside
Full Code
More than 30 minutes spent in discharge including
Final examination of the patient
Summarizing hospital stay
Instructions for continuing care to all relevant caregivers
Preparation of discharge records, prescriptions, and referral forms
Total time spent (in minutes):
45
Anticipated Discharge: Today
Subjective/Interval History
-
Date of Service: May 03, 2024
Anxiously awaiting dc, states feet pain remains active, but not as severe
Objective Data
-
Labs:
Laboratory Results
05/03/24
04:26
WBC 16.3 H
Hgb 11.6 L
Hct 37.9
Plt Count 586 H
Sodium 139
Potassium 4.0
Chloride 97 L
Carbon Dioxide 29
BUN 27 H
Creatinine 1.0
Glucose 175 H
Calcium 9.0
Vital Signs:
Vital Signs
Temp Pulse Resp BP Pulse Ox
99.0 F 107 17 135/94 95
05/03/24 07:42 05/03/24 07:42 05/03/24 07:42 05/03/24 07:42 05/03/24 09:46
I&O
05/02/24 05/03/24 05/04/24
06:59 06:59 06:59
Intake Total 240 / 240 720 / 720
Output Total 800 / 800
Balance 240 / 240 -80 / -80
Review of Systems
-
History Source: Patient and Physician (reviewed with Dr. Nogueira)
Constitutional: Denies Fever
EENT: Reports No Symptoms Reported
Respiratory: Reports No Symptoms
Cardiac: Reports No Symptoms
Abdomen/GI: Reports No Symptoms
Musculoskeletal: Reports Joint Pain (bilateral knee pain)
Physical Exam
-
General: Well Developed, Well Nourished and No Apparent Distress
HEENT: Normocephalic, Atraumatic and Moist Mucous Membranes
Respiratory: Clear to Auscultation; Negative Wheezes, Rales or Rhonchi
Cardiac: Regular Rhythm and S1/S2
GI: Soft, Nontender and Nondistended
Musculoskeletal: Edema, Right Lower Extrem, Edema, Left Lower Extrem and Other (bilateral knee arthritic changes)
Skin: Warm and Rash (left lower extremity with hyperremic changes, Rt leg with hx of pyoderma and chronic changes)
Neuro: Awake and Alert
--- NOTE | 2024-05-03 14:31 | W.DS.TRANS ---
DC Summary - Per Diem Nurse
-
Discharge Instructions:
Discharge Diagnosis/Procedures Lower Extremity Inflammation
Diet Low Sodium
Activity No strenuous activity
Driving Restrictions Not until seen by your Dr
Bathing Restrictions None
Other Services VN
Instructions:
Stand-Alone Forms:
Changes to Home Medications: Yes
Discharge Medications:
DC Medications w/original date entered in [employer]
Lactobac no.2-Bifidobac no.1-S. thermo 112.5 billion cell capsule (Visbiome) 1 cap PO DAILY 04/30/24
ascorbic acid (vitamin C) 500 mg tablet (Vitamin C) 500 mg PO DAILY 04/30/24
bismuth subsalicylate 262 mg/15 mL oral suspension (Pepto-Bismol) 262 mg PO DAILYPRN PRN diarrhea 04/30/24
ibuprofen 200 mg tablet (Advil) 400 mg PO Q8HPRN PRN mild pain 04/30/24
metronidazole 1 % topical gel 1 applic topical DAILY right lower leg 04/30/24
nystatin 100,000 unit/gram topical powder (Klayesta) 1 applic topical DAILY right lower leg 04/30/24
prednisone 20 mg tablet 20 mg PO DAILY 04/30/24
therapeutic multivitamin 1 tab PO DAILY 04/30/24
tramadol 100 mg tablet 100 mg PO TIDPRN PRN moderate pains 04/30/24
vitamin E 268 mg (400 unit) capsule 268 mg PO DAILY 04/30/24
zinc sulfate 50 mg zinc (220 mg) tablet 50 mg PO DAILY 04/30/24
doxycycline hyclate 100 mg capsule 100 mg PO Q12 #14 caps 05/03/24
furosemide 40 mg tablet (Lasix) 40 mg PO BID #0 tabs 05/03/24
gabapentin 300 mg capsule 300 mg PO TID #90 caps 05/03/24
Home Medication Changes
increase Gabapentin to tid
increase Lasix to 2x per day
Doxycycline for 7 days
Pending Results: No
[2024-05-03 14:38] VITALS: BP 148/88
== END 2024-05-03 15:33 | disposition home health service (06) | DRG 603 ==
LOC: 1 ACUTE 16:16
PROVIDERS: ADMITTING PHYSICIAN Internal Medicine; ATTENDING PHYSICIAN Internal Medicine; EMERGENCY PHYSICIAN Emergency Medicine; FAMILY PHYSICIAN Family Medicine; OTHER PHYSICIAN Student in an Organized Health Care Education/Training Program
DX: L03.115 Cellulitis of right lower limb (principal); Z68.41 Body mass index [BMI] 40.0-44.9, adult; L88 Pyoderma gangrenosum; I87.2 Venous insufficiency (chronic) (peripheral); L03.116 Cellulitis of left lower limb; E66.01 Morbid (severe) obesity due to excess calories; I89.0 Lymphedema, not elsewhere classified
CPT/HCPCS: 80048; 80053; 85025; 85027; 85652; 87070; 87147; 93970; 96361; 96374; 99285